=== PATIENT | female | born 1985 | race Caucasian/White ===

== ENCOUNTER 2016-11-01 14:31 | Emergency (ER) | payer SELFPAY ==
[~2016-11-01] VITALS: Ht 167.6 cm; Wt 56.8 kg
[~2016-11-01 14:31] MED LIST: BACTRIM DS 8001 TAB PO; DITROPAN XL 5MG5 M1 PO; FENTANYL 12MCG TD; MACRODANTIN100 PO; MOTRIN 800800 MG/TAB PO; NORCO 325 MG-51 TAB PO; NORCO 325 MG-7.1 TAB PO; OMNICEF 300MG300 MG PO; PERCOCET 325 MG1 TA2 PO; PYRIDIUM 100MG100 MG PO; STOOL SOFTENER100 M2 PO; TYLENOL 500MG500 MG PO; ZOFRAN 4MG T4 MG/TAB PO; ZOFRAN8 MG PO
[2016-11-01 14:32] VITALS: TEMP 98.1
[2016-11-01] MEDS ORDERED: PYRIDIUM200 M1 PO (15:05)
[2016-11-01] MEDS ORDERED: MACROBID 1100 MG/CAP PO (15:05)
[2016-11-01 15:17] VITALS: BP 162/105; PULSE 70
[2016-11-01 15:33] LABS: PH 6 (5-8); SQUAMOUS EPITHELIAL 0-2 /hpf; URINE APPEARANCE Cloudy; URINE BACTERIA Occasional /hpf; URINE BILIRUBIN Negative (NEGATIVE); URINE BLOOD 3+ (NEGATIVE); URINE COLOR Amber; URINE GLUCOSE Negative (NEGATIVE); URINE KETONE Negative (NEGATIVE); URINE RBC >50 /hpf; URINE UROBILINOGEN Negative (NEGATIVE); URINE WBC >50 /hpf
== END 2016-11-01 15:25 | disposition home or self-care (01) ==
LOC: COL.ER 14:31
PROVIDERS: Emergency Medicine
DX: N39.0 Urinary tract infection, site not specified (principal)

== ENCOUNTER 2016-11-07 22:06 | Emergency (ER) | payer SELFPAY ==
[~2016-11-07] VITALS: Ht 167.6 cm; Wt 57.7 kg
[~2016-11-07 22:06] MED LIST changes: +MACROBID 1100 MG/CAP PO; +PYRIDIUM200 M1 PO
[2016-11-07 22:10] VITALS: TEMP 97.9
[2016-11-07 22:59] LABS: BASO # 0.1 (0.0-0.2); BASO % 0.7 % (0.0-2.0); EOS # 0.1 (0.0-0.7); EOS % 1.5 % (0-4.0); GRAN # 5.1 (1.4-6.5); HEMATOCRIT 34.6 % (37.0-47.0); HEMOGLOBIN 11.1 g/dl (12.5-16.0); LYMPH % 15.1 % (20.0-51.0); MEAN CELL VOLUME 85 fl (80.0-100.0); MEAN CORPUSCULAR HEMOGLOBIN 27 pg (27.0-31.0); MEAN CORPUSCULAR HGB CONC 32 g/dl (33.0-37.0); MEAN PLATELET VOLUME 8.7 fl (7.4-10.4); MONO # 0.6 (0.1-0.6); MONO % 8.6 % (1.7-9.3); PLATELET COUNT 449 K/mm3 (130-400); RED BLOOD COUNT 4.06 M/mm3 (4.10-5.30); REDCELL DISTRIBUTION WIDTH-CV 13.2 % (11.5-14.5); WHITE BLOOD COUNT 6.8 K/mm3 (4.8-10.8)
[2016-11-07 22:59] LABS: PH 6 (5-8); SQUAMOUS EPITHELIAL None Seen /hpf; URINE APPEARANCE Hazy; URINE BACTERIA None Seen /hpf; URINE BILIRUBIN Negative (NEGATIVE); URINE BLOOD 3+ (NEGATIVE); URINE COLOR Amber; URINE GLUCOSE Negative (NEGATIVE); URINE KETONE Negative (NEGATIVE); URINE RBC >50 /hpf; URINE UROBILINOGEN >=4.0 mg/dL (NEGATIVE); URINE WBC >50 /hpf
[2016-11-07 23:08] LABS: CREATININE, serum 0.79 mg/dL (0.52-1.25); POTASSIUM 3.7 mmol/L (3.4-5.0)
[2016-11-08] MEDS ORDERED: CEPHALEXIN500 M1 PO (00:45)
[2016-11-08 00:59] VITALS: BP 148/86; PULSE 80
== END 2016-11-08 00:59 | disposition home or self-care (01) ==
LOC: COL.ER 22:06
PROVIDERS: Emergency Medicine
DX: N39.0 Urinary tract infection, site not specified (principal); B95.1 Streptococcus, group B, as the cause of diseases classified elsewhere; R31.9 Hematuria, unspecified
CPT/HCPCS: J0696; Q9967

== ENCOUNTER 2016-12-04 10:40 | Emergency (ER) | payer SELFPAY ==
[~2016-12-04] VITALS: Ht 167.6 cm; Wt 63.6 kg
[~2016-12-04 10:40] MED LIST changes: +CEPHALEXIN500 M1 PO
[2016-12-04 11:41] LABS: BASO # 0.1 (0.0-0.2); BASO % 0.7 % (0.0-2.0); EOS # 0.6 (0.0-0.7); EOS % 8.4 % (0-4.0); GRAN # 5.1 (1.4-6.5); HEMATOCRIT 38.4 % (37.0-47.0); HEMOGLOBIN 12.1 g/dl (12.5-16.0); LYMPH # 0.7 (1.2-3.4); LYMPH % 10.1 % (20.0-51.0); MEAN CELL VOLUME 86 fl (80.0-100.0); MEAN CORPUSCULAR HEMOGLOBIN 27 pg (27.0-31.0); MEAN CORPUSCULAR HGB CONC 32 g/dl (33.0-37.0); MEAN PLATELET VOLUME 9.3 fl (7.4-10.4); MONO # 0.6 (0.1-0.6); MONO % 8.7 % (1.7-9.3); PLATELET COUNT 321 K/mm3 (130-400); RED BLOOD COUNT 4.47 M/mm3 (4.10-5.30); REDCELL DISTRIBUTION WIDTH-CV 14.3 % (11.5-14.5)
[2016-12-04 11:53] LABS: PH 7 (5-8); SQUAMOUS EPITHELIAL 0-2 /hpf; URINE APPEARANCE Turbid; URINE BACTERIA Many /hpf; URINE BILIRUBIN Negative (NEGATIVE); URINE BLOOD 3+ (NEGATIVE); URINE COLOR Amber; URINE GLUCOSE Negative (NEGATIVE); URINE KETONE Trace (NEGATIVE); URINE UROBILINOGEN Negative (NEGATIVE); URINE WBC >50 /hpf
[2016-12-04 12:08] LABS: ADJUSTED CALCIUM 9.4 mg/dL (8.4-10.2); ALBUMIN 4.7 gm/dL (3.5-5.0); BILIRUBIN,TOTAL 0.6 mg/dL (0.0-1.0); CREATININE, serum 0.75 mg/dL (0.52-1.25); TOTAL PROTEIN 9.2 gm/dL (6.4-8.2)
[2016-12-04] MEDS ORDERED: CEPHALEXIN500 M1 PO (13:56)
[2016-12-04] MEDS ORDERED: NORCO 325 MG-51 TAB PO (13:56)
[2016-12-04] MEDS ORDERED: BACTRIM DS 8001 TAB PO (13:56)
[2016-12-04 14:16] VITALS: BP 175/109; PULSE 59; TEMP 97.9
== END 2016-12-04 14:20 | disposition home or self-care (01) ==
LOC: COL.ER 10:40
PROVIDERS: Nurse Practitioner
DX: N12 Tubulo-interstitial nephritis, not specified as acute or chronic (principal)
CPT/HCPCS: J2405; J3010; J7030; Q9967

== ENCOUNTER 2016-12-08 12:07 | Emergency (ER) | payer SELFPAY ==
[~2016-12-08] VITALS: Ht 167.6 cm; Wt 61.4 kg
[2016-12-08 13:20] LABS: PH 6 (5-8); SQUAMOUS EPITHELIAL 0-2 /hpf; URINE APPEARANCE Hazy; URINE BACTERIA None Seen /hpf; URINE BILIRUBIN Negative (NEGATIVE); URINE BLOOD 3+ (NEGATIVE); URINE COLOR Yellow; URINE GLUCOSE Negative (NEGATIVE); URINE KETONE Negative (NEGATIVE); URINE RBC >50 /hpf; URINE UROBILINOGEN Negative (NEGATIVE); URINE WBC >50 /hpf
[2016-12-08] MEDS ORDERED: NORCO 325 MG-51 TAB PO (13:32)
[2016-12-08 13:39] VITALS: BP 144/97; PULSE 64; TEMP 98
== END 2016-12-08 13:40 | disposition home or self-care (01) ==
LOC: COL.ER 12:07
PROVIDERS: Nurse Practitioner
DX: M54.31 Sciatica, right side (principal)

== ENCOUNTER 2016-12-13 11:04 | Day surgery (SDC) | payer SELFPAY ==
[~2016-12-13] VITALS: Ht 167.6 cm; Wt 63.2 kg
[2016-12-13 12:39] VITALS: BP 152/91; PULSE 71; TEMP 98.1
[2016-12-13 14:33] VITALS: BP 143/87; PULSE 84; TEMP 97.7
[2016-12-13 14:45] VITALS: BP 144/88; PULSE 93
[2016-12-13 14:55] VITALS: TEMP 98.9
[2016-12-13 15:00] VITALS: BP 140/81; PULSE 85
[2016-12-13] MEDS ORDERED: SENOKOT S 50 MG1 TAB PO (15:14)
== END 2016-12-13 15:30 | disposition home or self-care (01) ==
LOC: SDCO 11:04
DX: N13.1 Hydronephrosis with ureteral stricture, not elsewhere classified (principal); N21.0 Calculus in bladder; C53.9 Malignant neoplasm of cervix uteri, unspecified; C79.9 Secondary malignant neoplasm of unspecified site
CPT/HCPCS: C1769; C2617; J0360; J0690; J1100; J2270; J2405; J2704; J3010; J7120; Q9967

== ENCOUNTER → 2016-12-26 | Outpatient (CLI) | payer SELFPAY ==
[~2016-12-26] MED LIST changes: +NEULASTA 66 MG/0.6 M SQ; +SENOKOT S 50 MG1 TAB PO
== END ==
LOC: COL.RAD 10:21
DX: N13.39 Other hydronephrosis (principal)

== ENCOUNTER → 2017-01-08 | Outpatient (CLI) | payer SELFPAY ==
[~2017-01-08] VITALS: Ht 167.6 cm; Wt 60.1 kg
[2017-01-08] VITALS (15 sets, daily range): BP systolic 122–142; BP diastolic 76–97; PULSE 56–75
== END ==
LOC: COL.RAD 01-07 10:30 → EDSTATUS 10:30 → COL.RAD 10:30
DX: N13.39 Other hydronephrosis (principal); Z85.41 Personal history of malignant neoplasm of cervix uteri
CPT/HCPCS: J2250; J3010; Q9967

== ENCOUNTER 2017-01-14 11:03 | Day surgery (SDC) | payer SELFPAY ==
[~2017-01-14] VITALS: Ht 167.6 cm; Wt 63.4 kg
[~2017-01-14 11:03] MED LIST changes: -NEULASTA 66 MG/0.6 M SQ
[2017-01-14] MEDS ORDERED: PERCOCET 325 MG1 TA2 PO (11:53)
[2017-01-14 12:12] VITALS: BP 123/75; PULSE 58; TEMP 16
[2017-01-14 12:49] VITALS: BP 108/62; PULSE 53; TEMP 97.5
[2017-01-14 13:00] VITALS: BP 104/63; PULSE 64
[2017-01-14 13:15] VITALS: BP 116/63; PULSE 49
[2017-01-14 13:30] VITALS: BP 147/78; PULSE 16
== END 2017-01-14 14:35 | disposition home or self-care (01) ==
LOC: SDCO 11:03
DX: N13.5 Crossing vessel and stricture of ureter without hydronephrosis (principal); T83.198A Other mechanical complication of other urinary devices and implants, initial encounter; N21.0 Calculus in bladder; C53.9 Malignant neoplasm of cervix uteri, unspecified; D64.9 Anemia, unspecified
CPT/HCPCS: J2250; J2405; J2704; J3010; J7030

== ENCOUNTER 2017-05-02 10:08 | Day surgery (SDC) | payer MEDICAID ==
[~2017-05-02] VITALS: Ht 167.7 cm; Wt 59.0 kg
[2017-05-02] MEDS ORDERED: ZOFRAN 4MG T4 MG/TAB PO (10:55)
[2017-05-02] MEDS ORDERED: NEULASTA 66 MG/0.6 M SQ (10:55)
[2017-05-02 10:56] VITALS: BP 162/83; PULSE 50; TEMP 97.9
[2017-05-02 12:23] VITALS: BP 183/107; PULSE 55
== END 2017-05-02 14:22 | disposition home or self-care (01) ==
LOC: COL.CAR 10:08
DX: C53.9 Malignant neoplasm of cervix uteri, unspecified (principal)
CPT/HCPCS: C1729; C1769; C1894; J2250; J3010; J7030; J7120; Q9967

== ENCOUNTER 2017-07-02 13:00 | Outpatient (RCR) | payer MEDICAID ==
[2017-04-09 15:11] LABS: ADD PATHOLOGY DIFF REVIEW NO
[2017-04-09 15:16] LABS: MEAN CELL VOLUME 86 fl (80.0-100.0); MEAN CORPUSCULAR HGB CONC 32 g/dl (33.0-37.0); MEAN PLATELET VOLUME 9.7 fl (7.4-10.4); PLATELET COUNT 321 K/mm3 (130-400); RED BLOOD COUNT 3.66 M/mm3 (4.10-5.30); REDCELL DISTRIBUTION WIDTH-CV 14.4 % (11.5-14.5); WHITE BLOOD COUNT 4.3 K/mm3 (4.8-10.8)
[2017-04-09 15:27] LABS: HEMATOCRIT 31.5 % (37.0-47.0); HEMOGLOBIN 10.1 g/dl (12.5-16.0); MEAN CORPUSCULAR HEMOGLOBIN 28 pg (27.0-31.0)
[2017-04-09 15:29] LABS: ADJUSTED CALCIUM 9.6 mg/dL (8.4-10.2); ALBUMIN 3.4 gm/dL (3.5-5.0); BILIRUBIN,TOTAL 0.5 mg/dL (0.0-1.0); CALCIUM 9.1 mg/dL (8.4-10.2); CREATININE, serum 0.73 mg/dL (0.52-1.25); MAGNESIUM 1.6 mg/dL (1.6-2.3); TOTAL PROTEIN 6.8 gm/dL (6.4-8.2)
[2017-04-09 15:30] VITALS: BP 125/82; PULSE 57; TEMP 98
[2017-04-09 15:51] LABS: BAND 4 % (0-10); EOSINOPHIL 2 % (0-4); NEUTROPHILS 76 % (42.0-75.2); TOTAL CELLS COUNTED 100
[2017-04-09 15:52] LABS: ANISOCYTOSIS 1+; HYPOCHROMIA 1+; MICROCYTOSIS 1+; POIKILOCYTOSIS 1+; STOMATOCYTE 1+
[2017-04-10 16:58] VITALS: BP 143/72; PULSE 61; TEMP 98.2
[2017-04-12 13:40] VITALS: BP 154/90; PULSE 55; TEMP 98.2
[2017-04-17 13:30] VITALS: BP 101/50; PULSE 62; TEMP 98.6
[2017-04-17 14:15] LABS: MEAN CELL VOLUME 87 fl (80.0-100.0); MEAN CORPUSCULAR HGB CONC 32 g/dl (33.0-37.0); MEAN PLATELET VOLUME 9.5 fl (7.4-10.4); PLATELET COUNT 289 K/mm3 (130-400); RED BLOOD COUNT 3.78 M/mm3 (4.10-5.30); REDCELL DISTRIBUTION WIDTH-CV 14.6 % (11.5-14.5); WHITE BLOOD COUNT 9.6 K/mm3 (4.8-10.8)
[2017-04-17 14:17] LABS: HEMATOCRIT 32.8 % (37.0-47.0); HEMOGLOBIN 10.4 g/dl (12.5-16.0); MEAN CORPUSCULAR HEMOGLOBIN 28 pg (27.0-31.0)
[2017-04-17 14:28] LABS: ADJUSTED CALCIUM 9.5 mg/dL (8.4-10.2); ALBUMIN 3.7 gm/dL (3.5-5.0); BILIRUBIN,TOTAL 0.3 mg/dL (0.0-1.0); CALCIUM 9.3 mg/dL (8.4-10.2); CREATININE, serum 0.73 mg/dL (0.52-1.25); MAGNESIUM 1.8 mg/dL (1.6-2.3); POTASSIUM 4.1 mmol/L (3.4-5.0)
[2017-04-17 15:05] LABS: BAND 51 % (0-10); EOSINOPHIL 1 % (0-4); METAMYELOCYTE 1 % (0-0); MYELOCYTE 1 % (0-0); NEUTROPHILS 17 % (42.0-75.2); TOTAL CELLS COUNTED 100
[2017-04-17 15:06] LABS: STOMATOCYTE 1+
[2017-04-17 15:07] LABS: ADD PATHOLOGY DIFF REVIEW YES
[2017-04-19 08:04] LABS: PATHOLOGY DIFF REVIEW OK
[2017-04-22 13:33] VITALS: BP 139/87; PULSE 84; TEMP 98.3
[2017-04-22 13:34] LABS: ADD PATHOLOGY DIFF REVIEW NO
[2017-04-22 13:39] LABS: MEAN CELL VOLUME 86 fl (80.0-100.0); MEAN CORPUSCULAR HGB CONC 32 g/dl (33.0-37.0); MEAN PLATELET VOLUME 9.4 fl (7.4-10.4); PLATELET COUNT 253 K/mm3 (130-400); RED BLOOD COUNT 4.03 M/mm3 (4.10-5.30); WHITE BLOOD COUNT 9.4 K/mm3 (4.8-10.8)
[2017-04-22 13:44] LABS: HEMATOCRIT 34.7 % (37.0-47.0); HEMOGLOBIN 11.1 g/dl (12.5-16.0); MEAN CORPUSCULAR HEMOGLOBIN 28 pg (27.0-31.0)
[2017-04-22 14:01] LABS: ADJUSTED CALCIUM 9.3 mg/dL (8.4-10.2); ALBUMIN 4.3 gm/dL (3.5-5.0); BILIRUBIN,TOTAL 0.4 mg/dL (0.0-1.0); CALCIUM 9.5 mg/dL (8.4-10.2); CREATININE, serum 0.85 mg/dL (0.52-1.25); MAGNESIUM 1.9 mg/dL (1.6-2.3); POTASSIUM 3.8 mmol/L (3.4-5.0)
[2017-04-22 14:15] LABS: BAND 15 % (0-10); EOSINOPHIL 2 % (0-4); METAMYELOCYTE 1 % (0-0); MYELOCYTE 1 % (0-0); NEUTROPHILS 66 % (42.0-75.2); PLATELET ESTIMATE NORMAL (NORMAL); TOTAL CELLS COUNTED 100
[2017-04-30 12:34] LABS: ADD PATHOLOGY DIFF REVIEW NO
[2017-04-30 12:43] VITALS: BP 119/72; PULSE 62; TEMP 98.2
[2017-04-30 12:49] LABS: MEAN CELL VOLUME 85 fl (80.0-100.0); MEAN CORPUSCULAR HGB CONC 33 g/dl (33.0-37.0); MEAN PLATELET VOLUME 9.8 fl (7.4-10.4); PLATELET COUNT 527 K/mm3 (130-400); RED BLOOD COUNT 3.95 M/mm3 (4.10-5.30); REDCELL DISTRIBUTION WIDTH-CV 15.1 % (11.5-14.5)
[2017-04-30 12:50] LABS: HEMATOCRIT 33.4 % (37.0-47.0); MEAN CORPUSCULAR HEMOGLOBIN 28 pg (27.0-31.0)
[2017-04-30 12:57] LABS: ADJUSTED CALCIUM 9.4 mg/dL (8.4-10.2); ALBUMIN 3.8 gm/dL (3.5-5.0); BILIRUBIN,TOTAL 0.3 mg/dL (0.0-1.0); CALCIUM 9.2 mg/dL (8.4-10.2); CREATININE, serum 0.66 mg/dL (0.52-1.25); MAGNESIUM 1.7 mg/dL (1.6-2.3); POTASSIUM 3.8 mmol/L (3.4-5.0); TOTAL PROTEIN 7.4 gm/dL (6.4-8.2)
[2017-04-30 13:47] LABS: BAND 4 % (0-10); EOSINOPHIL 1 % (0-4); METAMYELOCYTE 2 % (0-0); NEUTROPHILS 75 % (42.0-75.2); TOTAL CELLS COUNTED 100
[2017-04-30 13:48] LABS: ANISOCYTOSIS 1+; HYPOCHROMIA 2+; PLATELET ESTIMATE INCREASED (NORMAL)
[2017-05-07 13:24] LABS: ADD PATHOLOGY DIFF REVIEW NO
[2017-05-07 13:35] LABS: MEAN CELL VOLUME 87 fl (80.0-100.0); MEAN CORPUSCULAR HGB CONC 31 g/dl (33.0-37.0); MEAN PLATELET VOLUME 9.8 fl (7.4-10.4); PLATELET COUNT 332 K/mm3 (130-400); RED BLOOD COUNT 3.55 M/mm3 (4.10-5.30); REDCELL DISTRIBUTION WIDTH-CV 15.3 % (11.5-14.5); WHITE BLOOD COUNT 9.1 K/mm3 (4.8-10.8)
[2017-05-07 13:38] LABS: HEMATOCRIT 30.9 % (37.0-47.0); HEMOGLOBIN 9.7 g/dl (12.5-16.0); MEAN CORPUSCULAR HEMOGLOBIN 27 pg (27.0-31.0)
[2017-05-07 13:45] LABS: ADJUSTED CALCIUM 9.7 mg/dL (8.4-10.2); ALBUMIN 3.7 gm/dL (3.5-5.0); BILIRUBIN,TOTAL 0.4 mg/dL (0.0-1.0); CALCIUM 9.5 mg/dL (8.4-10.2); CREATININE, serum 0.7 mg/dL (0.52-1.25); MAGNESIUM 1.7 mg/dL (1.6-2.3); POTASSIUM 4.1 mmol/L (3.4-5.0); TOTAL PROTEIN 7.1 gm/dL (6.4-8.2)
[2017-05-07 13:58] VITALS: BP 105/61; PULSE 71; TEMP 98.3
[2017-05-07 14:05] LABS: BAND 9 % (0-10); EOSINOPHIL 1 % (0-4); NEUTROPHILS 65 % (42.0-75.2); TOTAL CELLS COUNTED 100
[2017-05-07 14:08] LABS: POLYCHROMASIA 1+
[2017-05-07 14:09] LABS: PLATELET ESTIMATE NORMAL (NORMAL); POIKILOCYTOSIS 1+
[2017-05-14 13:54] VITALS: BP 130/72; PULSE 68; TEMP 98
[2017-05-14 13:57] LABS: ADD PATHOLOGY DIFF REVIEW NO
[2017-05-14 14:11] LABS: ALBUMIN 4.2 gm/dL (3.5-5.0); BILIRUBIN,TOTAL 0.4 mg/dL (0.0-1.0); CALCIUM 9.2 mg/dL (8.4-10.2); CREATININE, serum 0.78 mg/dL (0.52-1.25); MAGNESIUM 1.8 mg/dL (1.6-2.3); TOTAL PROTEIN 7.6 gm/dL (6.4-8.2)
[2017-05-14 14:21] LABS: MEAN CELL VOLUME 87 fl (80.0-100.0); MEAN CORPUSCULAR HGB CONC 32 g/dl (33.0-37.0); MEAN PLATELET VOLUME 9.8 fl (7.4-10.4); PLATELET COUNT 222 K/mm3 (130-400); RED BLOOD COUNT 3.77 M/mm3 (4.10-5.30); REDCELL DISTRIBUTION WIDTH-CV 16.4 % (11.5-14.5); WHITE BLOOD COUNT 9.9 K/mm3 (4.8-10.8)
[2017-05-14 14:22] LABS: HEMATOCRIT 32.9 % (37.0-47.0); HEMOGLOBIN 10.6 g/dl (12.5-16.0); MEAN CORPUSCULAR HEMOGLOBIN 28 pg (27.0-31.0)
[2017-05-14 14:47] LABS: BAND 48 % (0-10); BASOPHIL 1 % (0-2); EOSINOPHIL 1 % (0-4); NEUTROPHILS 38 % (42.0-75.2); PLATELET ESTIMATE NORMAL (NORMAL); TOTAL CELLS COUNTED 100
[2017-05-14 14:48] LABS: ANISOCYTOSIS 2+
[2017-05-21 15:16] LABS: MEAN CELL VOLUME 88 fl (80.0-100.0); MEAN CORPUSCULAR HGB CONC 32 g/dl (33.0-37.0); PLATELET COUNT 340 K/mm3 (130-400); RED BLOOD COUNT 3.55 M/mm3 (4.10-5.30); REDCELL DISTRIBUTION WIDTH-CV 17.1 % (11.5-14.5); WHITE BLOOD COUNT 9.3 K/mm3 (4.8-10.8)
[2017-05-21 15:17] LABS: HEMATOCRIT 31.1 % (37.0-47.0); MEAN CORPUSCULAR HEMOGLOBIN 28 pg (27.0-31.0)
[2017-05-21 15:31] LABS: ADJUSTED CALCIUM 9.1 mg/dL (8.4-10.2); BILIRUBIN,TOTAL 0.4 mg/dL (0.0-1.0); CALCIUM 9.1 mg/dL (8.4-10.2); CREATININE, serum 0.93 mg/dL (0.52-1.25); MAGNESIUM 1.7 mg/dL (1.6-2.3); POTASSIUM 4.3 mmol/L (3.4-5.0); TOTAL PROTEIN 6.9 gm/dL (6.4-8.2)
[2017-05-21 16:13] VITALS: BP 99/45; PULSE 64; TEMP 98
[2017-05-21 16:35] LABS: BAND 2 % (0-10); EOSINOPHIL 1 % (0-4); NEUTROPHILS 84 % (42.0-75.2); TOTAL CELLS COUNTED 100
[2017-05-21 16:37] LABS: HYPOCHROMIA 1+; MICROCYTOSIS 2+; PLATELET ESTIMATE INCREASED (NORMAL); POIKILOCYTOSIS 1+
[2017-05-21 16:38] LABS: TOXIC GRANULATION PRESENT
[2017-05-23 08:41] LABS: ADD PATHOLOGY DIFF REVIEW YES
[2017-05-23 08:44] LABS: PATHOLOGY DIFF REVIEW OK
[2017-05-29 14:04] VITALS: BP 120/71; PULSE 65; TEMP 98.5
[2017-05-29 14:09] LABS: ADD PATHOLOGY DIFF REVIEW NO
[2017-05-29 14:18] LABS: MEAN CELL VOLUME 90 fl (80.0-100.0); MEAN CORPUSCULAR HGB CONC 32 g/dl (33.0-37.0); MEAN PLATELET VOLUME 9.8 fl (7.4-10.4); PLATELET COUNT 290 K/mm3 (130-400); RED BLOOD COUNT 3.45 M/mm3 (4.10-5.30); REDCELL DISTRIBUTION WIDTH-CV 16.6 % (11.5-14.5); WHITE BLOOD COUNT 10.2 K/mm3 (4.8-10.8)
[2017-05-29 14:22] LABS: HEMOGLOBIN 9.9 g/dl (12.5-16.0); MEAN CORPUSCULAR HEMOGLOBIN 29 pg (27.0-31.0)
[2017-05-29 14:49] LABS: ANISOCYTOSIS 1+; BAND 12 % (0-10); EOSINOPHIL 1 % (0-4); NEUTROPHILS 69 % (42.0-75.2); PLATELET ESTIMATE NORMAL (NORMAL); POLYCHROMASIA 1+; TOTAL CELLS COUNTED 100
[2017-06-03 11:50] LABS: ADD PATHOLOGY DIFF REVIEW NO
[2017-06-03 12:04] LABS: ADJUSTED CALCIUM 9.5 mg/dL (8.4-10.2); ALBUMIN 4.1 gm/dL (3.5-5.0); BILIRUBIN,TOTAL 0.4 mg/dL (0.0-1.0); CALCIUM 9.6 mg/dL (8.4-10.2); CREATININE, serum 0.73 mg/dL (0.52-1.25); POTASSIUM 4.5 mmol/L (3.4-5.0); TOTAL PROTEIN 7.4 gm/dL (6.4-8.2)
[2017-06-03 12:09] LABS: MEAN CELL VOLUME 89 fl (80.0-100.0); MEAN CORPUSCULAR HGB CONC 32 g/dl (33.0-37.0); MEAN PLATELET VOLUME 9.8 fl (7.4-10.4); PLATELET COUNT 247 K/mm3 (130-400); RED BLOOD COUNT 3.75 M/mm3 (4.10-5.30); REDCELL DISTRIBUTION WIDTH-CV 16.8 % (11.5-14.5)
[2017-06-03 12:17] LABS: HEMATOCRIT 33.5 % (37.0-47.0); HEMOGLOBIN 10.8 g/dl (12.5-16.0); MEAN CORPUSCULAR HEMOGLOBIN 29 pg (27.0-31.0)
[2017-06-03 12:21] LABS: BAND 7 % (0-10); EOSINOPHIL 2 % (0-4); NEUTROPHILS 75 % (42.0-75.2); TOTAL CELLS COUNTED 100
[2017-06-03 12:22] LABS: ANISOCYTOSIS 1+; PLATELET ESTIMATE NORMAL (NORMAL)
[2017-06-11 15:38] VITALS: BP 117/65; PULSE 63; TEMP 98.1
[2017-06-11 15:57] LABS: ADD PATHOLOGY DIFF REVIEW NO
[2017-06-11 16:01] LABS: MEAN CELL VOLUME 90 fl (80.0-100.0); MEAN CORPUSCULAR HGB CONC 33 g/dl (33.0-37.0); MEAN PLATELET VOLUME 9.8 fl (7.4-10.4); PLATELET COUNT 397 K/mm3 (130-400); REDCELL DISTRIBUTION WIDTH-CV 15.9 % (11.5-14.5); WHITE BLOOD COUNT 6.7 K/mm3 (4.8-10.8)
[2017-06-11 16:04] LABS: HEMATOCRIT 30.5 % (37.0-47.0); HEMOGLOBIN 9.9 g/dl (12.5-16.0); MEAN CORPUSCULAR HEMOGLOBIN 29 pg (27.0-31.0)
[2017-06-11 16:25] LABS: ADJUSTED CALCIUM 9.7 mg/dL (8.4-10.2); ALBUMIN 3.9 gm/dL (3.5-5.0); BILIRUBIN,TOTAL 0.3 mg/dL (0.0-1.0); CALCIUM 9.6 mg/dL (8.4-10.2); CREATININE, serum 0.78 mg/dL (0.52-1.25); MAGNESIUM 1.7 mg/dL (1.6-2.3); POTASSIUM 4.2 mmol/L (3.4-5.0); TOTAL PROTEIN 6.9 gm/dL (6.4-8.2)
[2017-06-11 16:36] LABS: BAND 21 % (0-10); EOSINOPHIL 1 % (0-4); NEUTROPHILS 65 % (42.0-75.2); TOTAL CELLS COUNTED 100
[2017-06-18 09:54] VITALS: BP 106/60; PULSE 63; TEMP 98.4
[2017-06-18 10:08] LABS: ADD PATHOLOGY DIFF REVIEW NO
[2017-06-18 10:15] LABS: RED BLOOD COUNT 3.53 M/mm3 (4.10-5.30); WHITE BLOOD COUNT 12.7 K/mm3 (4.8-10.8)
[2017-06-18 10:16] LABS: MEAN CELL VOLUME 92 fl (80.0-100.0); MEAN CORPUSCULAR HGB CONC 32 g/dl (33.0-37.0); MEAN PLATELET VOLUME 9.5 fl (7.4-10.4); PLATELET COUNT 302 K/mm3 (130-400)
[2017-06-18 10:19] LABS: HEMATOCRIT 32.5 % (37.0-47.0); HEMOGLOBIN 10.3 g/dl (12.5-16.0); MEAN CORPUSCULAR HEMOGLOBIN 29 pg (27.0-31.0)
[2017-06-18 10:47] LABS: BAND 36 % (0-10); EOSINOPHIL 1 % (0-4); METAMYELOCYTE 1 % (0-0); MYELOCYTE 1 % (0-0); NEUTROPHILS 46 % (42.0-75.2); PLATELET ESTIMATE NORMAL (NORMAL); TOTAL CELLS COUNTED 100
[2017-06-28 13:55] LABS: ADD PATHOLOGY DIFF REVIEW NO
[2017-06-28 14:02] LABS: MEAN CELL VOLUME 88 fl (80.0-100.0); MEAN CORPUSCULAR HGB CONC 33 g/dl (33.0-37.0); MEAN PLATELET VOLUME 9.5 fl (7.4-10.4); PLATELET COUNT 281 K/mm3 (130-400); RED BLOOD COUNT 3.77 M/mm3 (4.10-5.30); REDCELL DISTRIBUTION WIDTH-CV 15.8 % (11.5-14.5); WHITE BLOOD COUNT 8.2 K/mm3 (4.8-10.8)
[2017-06-28 14:03] LABS: HEMATOCRIT 33.2 % (37.0-47.0); MEAN CORPUSCULAR HEMOGLOBIN 29 pg (27.0-31.0)
[2017-06-28 14:18] VITALS: BP 140/82; PULSE 83; TEMP 98
[2017-06-28 14:21] LABS: BAND 19 % (0-10); BASOPHIL 2 % (0-2); METAMYELOCYTE 1 % (0-0); NEUTROPHILS 61 % (42.0-75.2); PLATELET ESTIMATE NORMAL (NORMAL); TOTAL CELLS COUNTED 100; TOXIC GRANULATION PRESENT
[~2017-07-02] VITALS: Ht 167.6 cm; Wt 63.0 kg
[~2017-07-02 13:00] MED LIST changes: +NEULASTA 66 MG/0.6 M SQ
[2017-07-02 13:40] VITALS: BP 124/74; PULSE 60; TEMP 97.6
[2017-07-02 13:40] LABS: ADD PATHOLOGY DIFF REVIEW NO
[2017-07-02 13:55] LABS: MEAN CELL VOLUME 88 fl (80.0-100.0); MEAN CORPUSCULAR HGB CONC 33 g/dl (33.0-37.0); MEAN PLATELET VOLUME 9.7 fl (7.4-10.4); PLATELET COUNT 396 K/mm3 (130-400); RED BLOOD COUNT 3.83 M/mm3 (4.10-5.30); REDCELL DISTRIBUTION WIDTH-CV 15.5 % (11.5-14.5); WHITE BLOOD COUNT 7.4 K/mm3 (4.8-10.8)
[2017-07-02 13:56] LABS: ADJUSTED CALCIUM 8.9 mg/dL (8.4-10.2); ALBUMIN 4.2 gm/dL (3.5-5.0); BILIRUBIN,TOTAL 0.3 mg/dL (0.0-1.0); CALCIUM 9.1 mg/dL (8.4-10.2); CREATININE, serum 0.85 mg/dL (0.52-1.25); MAGNESIUM 1.4 mg/dL (1.6-2.3); POTASSIUM 4.2 mmol/L (3.4-5.0); TOTAL PROTEIN 7.3 gm/dL (6.4-8.2)
[2017-07-02 14:22] LABS: BAND 4 % (0-10); BASOPHIL 1 % (0-2); EOSINOPHIL 1 % (0-4); MYELOCYTE 2 % (0-0); NEUTROPHILS 73 % (42.0-75.2); PLATELET ESTIMATE NORMAL (NORMAL); TOTAL CELLS COUNTED 100
[2017-07-02 14:25] LABS: ANISOCYTOSIS 1+; HEMATOCRIT 33.6 % (37.0-47.0); HEMOGLOBIN 11.1 g/dl (12.5-16.0); MEAN CORPUSCULAR HEMOGLOBIN 29 pg (27.0-31.0)
[2017-07-02 14:26] LABS: TEAR DROP CELLS 1+
== END 2017-07-08 ==
LOC: EUO
PROVIDERS: Internal Medicine; Internal Medicine Medical Oncology
DX: C53.9 Malignant neoplasm of cervix uteri, unspecified (principal)
CPT/HCPCS: C1751; J1644

== ENCOUNTER → 2017-07-25 | Outpatient (CLI) | payer MEDICAID ==
[~2017-07-25] VITALS: Ht 167.6 cm; Wt 66.1 kg
[~2017-07-25] MED LIST changes: +NEURONTIN100 MG/CAP PO; +NEURONTIN300 MG/CAP; +ROXICODONE 55 MG/TAB PO; +ZOVIRAX 200MG200 MG PO
[2017-07-25 15:29] VITALS: BP 178/96; PULSE 54
== END ==
LOC: COL.RAD 14:56
DX: Z01.89 Encounter for other specified special examinations (principal)

== ENCOUNTER 2017-08-02 09:09 | Inpatient (IN) | payer MEDICAID ==
[~2017-08-02] VITALS: Ht 167.6 cm; Wt 66.0 kg
[2017-08-02] MEDS ORDERED: LEVAQUIN 5500 MG/TA1 PO (09:25)
[2017-08-02 10:05] LABS: MEAN CELL VOLUME 95 fl (80.0-100.0); MEAN CORPUSCULAR HGB CONC 32 g/dl (33.0-37.0); MEAN PLATELET VOLUME 9.6 fl (7.4-10.4); PLATELET COUNT 336 K/mm3 (130-400); RED BLOOD COUNT 3.67 M/mm3 (4.10-5.30); WHITE BLOOD COUNT 13.2 K/mm3 (4.8-10.8)
[2017-08-02 10:11] LABS: HEMOGLOBIN 11.1 g/dl (12.5-16.0); MEAN CORPUSCULAR HEMOGLOBIN 30 pg (27.0-31.0)
[2017-08-02 10:12] LABS: ADD PATHOLOGY DIFF REVIEW NO
[2017-08-02] MEDS ORDERED: DECADRON 4MG TAB4 MG PO (10:15)
[2017-08-02 10:17] LABS: BUDDING YEAST Present /hpf; MUCOUS Present /lpf; PH 8 (5-8); URINE APPEARANCE Cloudy; URINE BACTERIA Rare /hpf; URINE BILIRUBIN Negative (NEGATIVE); URINE BLOOD 1+ (NEGATIVE); URINE GLUCOSE Negative (NEGATIVE); URINE KETONE Negative (NEGATIVE); URINE LEUKOCYTE ESTERASE 3+ (NEGATIVE); URINE PROTEIN(semi-quant) 1+ (NEGATIVE); URINE UROBILINOGEN Negative (NEGATIVE); URINE WBC >50 /hpf
[2017-08-02 10:34] LABS: ADJUSTED CALCIUM 9.1 mg/dL (8.4-10.2); ALBUMIN 4.2 gm/dL (3.5-5.0); BILIRUBIN,TOTAL 0.3 mg/dL (0.0-1.0); C-REACTIVE PROTEIN 3.3 mg/dL (0.0-0.9); CALCIUM 9.3 mg/dL (8.4-10.2); CREATININE, serum 0.77 mg/dL (0.52-1.25); POTASSIUM 4.4 mmol/L (3.4-5.0); TOTAL PROTEIN 7.6 gm/dL (6.4-8.2)
[2017-08-02 10:38] LABS: BAND 45 % (0-10); BASOPHIL 1 % (0-2); LYMPHOCYTE 9 % (20.0-51.0); NEUTROPHILS 43 % (42.0-75.2); PLATELET ESTIMATE NORMAL (NORMAL); TOTAL CELLS COUNTED 100
[2017-08-02 10:40] LABS: STOMATOCYTE 1+
[2017-08-02 10:55] LABS: URINE COLOR Colorless
[2017-08-02 10:57] LABS: COLLECTION METHOD CATHETER
[2017-08-02 13:18] VITALS: BP 111/66; PULSE 63; TEMP 97.7
[2017-08-02 16:22] VITALS: BP 116/64; PULSE 60; TEMP 98
[2017-08-02 20:22] VITALS: BP 123/70; PULSE 65; TEMP 98.2
[2017-08-03 04:05] VITALS: BP 121/66; PULSE 61; TEMP 98.3
[2017-08-03 07:45] VITALS: BP 127/75; PULSE 67; TEMP 98.5
[2017-08-03 09:43] LABS: MEAN CELL VOLUME 98 fl (80.0-100.0); MEAN CORPUSCULAR HGB CONC 31 g/dl (33.0-37.0); MEAN PLATELET VOLUME 9.4 fl (7.4-10.4); PLATELET COUNT 257 K/mm3 (130-400); RED BLOOD COUNT 3.51 M/mm3 (4.10-5.30); WHITE BLOOD COUNT 11.2 K/mm3 (4.8-10.8)
[2017-08-03 09:49] LABS: ADD PATHOLOGY DIFF REVIEW NO; HEMATOCRIT 34.4 % (37.0-47.0); HEMOGLOBIN 10.6 g/dl (12.5-16.0); MEAN CORPUSCULAR HEMOGLOBIN 30 pg (27.0-31.0)
[2017-08-03 09:52] LABS: CALCIUM 9.1 mg/dL (8.4-10.2); CREATININE, serum 0.75 mg/dL (0.52-1.25)
[2017-08-03 12:22] VITALS: BP 109/57; PULSE 79; TEMP 98
[2017-08-03 13:17] LABS: BAND 26 % (0-10); LYMPHOCYTE 7 % (20.0-51.0); NEUTROPHILS 65 % (42.0-75.2); PLATELET ESTIMATE NORMAL (NORMAL); TOTAL CELLS COUNTED 100; TOXIC GRANULATION PRESENT
[2017-08-03 13:22] LABS: ANISOCYTOSIS 1+; DOHLE BODIES PRESENT; POLYCHROMASIA 1+; TEAR DROP CELLS 1+
[2017-08-03 16:03] VITALS: BP 137/77; PULSE 78; TEMP 98.8
[2017-08-03 20:22] VITALS: BP 115/64; PULSE 61; TEMP 98.8
[2017-08-04] VITALS (7 sets, daily range): BP systolic 103–152; BP diastolic 62–82; PULSE 57–84; TEMP 97.6–98.6
[2017-08-04 09:45] LABS: MEAN CELL VOLUME 95 fl (80.0-100.0); MEAN CORPUSCULAR HGB CONC 32 g/dl (33.0-37.0); MEAN PLATELET VOLUME 9.8 fl (7.4-10.4); PLATELET COUNT 184 K/mm3 (130-400); RED BLOOD COUNT 3.03 M/mm3 (4.10-5.30)
[2017-08-04 09:54] LABS: ADD PATHOLOGY DIFF REVIEW NO; HEMATOCRIT 28.9 % (37.0-47.0); HEMOGLOBIN 9.1 g/dl (12.5-16.0); MEAN CORPUSCULAR HEMOGLOBIN 30 pg (27.0-31.0)
[2017-08-04 09:55] LABS: CALCIUM 8.8 mg/dL (8.4-10.2); CREATININE, serum 0.72 mg/dL (0.52-1.25); POTASSIUM 4.2 mmol/L (3.4-5.0)
[2017-08-04 12:27] LABS: BAND 36 % (0-10); LYMPHOCYTE 4 % (20.0-51.0); MYELOCYTE 1 % (0-0); NEUTROPHILS 59 % (42.0-75.2); PLATELET ESTIMATE NORMAL (NORMAL); TOTAL CELLS COUNTED 100
[2017-08-05 08:47] VITALS: BP 154/85; PULSE 61; TEMP 98
[2017-08-05 09:08] LABS: MEAN CELL VOLUME 95 fl (80.0-100.0); MEAN CORPUSCULAR HGB CONC 31 g/dl (33.0-37.0); MEAN PLATELET VOLUME 9.3 fl (7.4-10.4); PLATELET COUNT 198 K/mm3 (130-400); RED BLOOD COUNT 2.93 M/mm3 (4.10-5.30); WHITE BLOOD COUNT 9.1 K/mm3 (4.8-10.8)
[2017-08-05 09:10] LABS: ADD PATHOLOGY DIFF REVIEW NO; HEMATOCRIT 27.8 % (37.0-47.0); HEMOGLOBIN 8.7 g/dl (12.5-16.0); MEAN CORPUSCULAR HEMOGLOBIN 30 pg (27.0-31.0)
[2017-08-05 10:26] LABS: BAND 55 % (0-10); BASOPHIL 1 % (0-2); EOSINOPHIL 1 % (0-4); LYMPHOCYTE 11 % (20.0-51.0); METAMYELOCYTE 1 % (0-0); NEUTROPHILS 28 % (42.0-75.2); PLATELET ESTIMATE NORMAL (NORMAL); TOTAL CELLS COUNTED 100
[2017-08-05 10:28] LABS: TOXIC GRANULATION PRESENT
[2017-08-05 10:29] LABS: POLYCHROMASIA 1+
[2017-08-05 12:44] VITALS: BP 160/86; PULSE 58; TEMP 98
[2017-08-05 16:36] VITALS: BP 152/92; PULSE 65; TEMP 98.7
[2017-08-05 19:45] VITALS: BP 134/82; PULSE 67; TEMP 98.2
[2017-08-06 02:03] VITALS: BP 177/95; PULSE 65; TEMP 98.1
[2017-08-06 03:04] VITALS: BP 133/80; PULSE 59; TEMP 98.2
[2017-08-06 06:59] LABS: MEAN CELL VOLUME 94 fl (80.0-100.0); MEAN CORPUSCULAR HGB CONC 32 g/dl (33.0-37.0); MEAN PLATELET VOLUME 9.5 fl (7.4-10.4); PLATELET COUNT 210 K/mm3 (130-400); RED BLOOD COUNT 3.13 M/mm3 (4.10-5.30); WHITE BLOOD COUNT 7.8 K/mm3 (4.8-10.8)
[2017-08-06 07:00] LABS: ADD PATHOLOGY DIFF REVIEW NO; HEMATOCRIT 29.5 % (37.0-47.0); HEMOGLOBIN 9.4 g/dl (12.5-16.0); MEAN CORPUSCULAR HEMOGLOBIN 30 pg (27.0-31.0)
[2017-08-06 07:19] LABS: CALCIUM 8.7 mg/dL (8.4-10.2); CREATININE, serum 0.69 mg/dL (0.52-1.25); POTASSIUM 3.6 mmol/L (3.4-5.0)
[2017-08-06 07:33] VITALS: BP 149/88; PULSE 63; TEMP 98.1
[2017-08-06 07:39] LABS: BAND 35 % (0-10); EOSINOPHIL 2 % (0-4); HYPOCHROMIA 2+; LYMPHOCYTE 10 % (20.0-51.0); NEUTROPHILS 46 % (42.0-75.2); NUCLEATED RED BLOOD CELL 2 (0-6); PLATELET ESTIMATE NORMAL (NORMAL); TOTAL CELLS COUNTED 100; TOXIC GRANULATION PRESENT
[2017-08-06 07:40] LABS: POLYCHROMASIA 1+
[2017-08-06 10:56] VITALS: BP 142/75; PULSE 61; TEMP 98.1
[2017-08-06 15:31] VITALS: BP 121/65; PULSE 59; TEMP 97.6
[2017-08-06 19:40] VITALS: BP 156/85; PULSE 51; TEMP 97.1
[2017-08-07 00:10] VITALS: BP 146/77; PULSE 53; TEMP 97.7
[2017-08-07 03:59] VITALS: BP 149/77; PULSE 57; TEMP 98.6
[2017-08-07 06:35] LABS: BASO # 0.1 (0.0-0.2); BASO % 0.6 % (0.0-2.0); EOS # 0.1 (0.0-0.7); EOS % 1.3 % (0-4.0); GRAN # 6.7 (1.4-6.5); LYMPH # 0.9 (1.2-3.4); LYMPH % 10.7 % (20.0-51.0); MEAN CELL VOLUME 93 fl (80.0-100.0); MEAN CORPUSCULAR HGB CONC 32 g/dl (33.0-37.0); MEAN PLATELET VOLUME 9.5 fl (7.4-10.4); MONO # 0.4 (0.1-0.6); PLATELET COUNT 201 K/mm3 (130-400); RED BLOOD COUNT 3.23 M/mm3 (4.10-5.30); WHITE BLOOD COUNT 8.3 K/mm3 (4.8-10.8)
[2017-08-07 06:46] LABS: HEMOGLOBIN 9.6 g/dl (12.5-16.0); MEAN CORPUSCULAR HEMOGLOBIN 30 pg (27.0-31.0)
[2017-08-07 06:51] LABS: CALCIUM 8.8 mg/dL (8.4-10.2); CREATININE, serum 0.73 mg/dL (0.52-1.25); POTASSIUM 3.7 mmol/L (3.4-5.0)
[2017-08-07 07:37] VITALS: BP 137/67; PULSE 60; TEMP 98.3
[2017-08-07 12:16] VITALS: BP 154/78; PULSE 55; TEMP 98
[2017-08-07 12:43] VITALS: PULSE 54
[2017-08-07] MEDS ORDERED: BACTRIM DS 8001 TAB PO (14:46)
[2017-08-07] MEDS ORDERED: PERCOCET 325 MG1 TA2 PO (14:47)
== END 2017-08-07 16:00 | disposition home or self-care (01) | DRG 699 ==
LOC: COL.ER 09:09 → MEDICAL 12:15 → COL.ER 12:15 → MEDICAL 08-04 16:10
PROVIDERS: Family Medicine; Nurse Practitioner; Physician Assistant
PROC: 0T25X0Z Change Drainage Device in Kidney, External Approach (ICD-10-PCS; principal; 2017-08-07)
DX: N99.521 Infection of incontinent external stoma of urinary tract (principal); N10 Acute pyelonephritis; C77.2 Secondary and unspecified malignant neoplasm of intra-abdominal lymph nodes; B95.62 Methicillin resistant Staphylococcus aureus infection as the cause of diseases classified elsewhere; C53.9 Malignant neoplasm of cervix uteri, unspecified
CPT/HCPCS: 99222-AI; 99231-AI; 99232-AI; 99239; J1170; J1644; J1650; J1956; J2405; J3370; J7030; J7050; Q9967

== ENCOUNTER 2017-08-27 14:00 | Outpatient (RCR) | payer MEDICAID ==
[2017-07-09 13:51] VITALS: BP 128/80; PULSE 69; TEMP 98
[2017-07-09 14:17] LABS: ADD PATHOLOGY DIFF REVIEW NO
[2017-07-09 14:28] LABS: MEAN CELL VOLUME 91 fl (80.0-100.0); MEAN CORPUSCULAR HGB CONC 33 g/dl (33.0-37.0); MEAN PLATELET VOLUME 9.9 fl (7.4-10.4); PLATELET COUNT 287 K/mm3 (130-400); RED BLOOD COUNT 3.67 M/mm3 (4.10-5.30); WHITE BLOOD COUNT 13.4 K/mm3 (4.8-10.8)
[2017-07-09 14:38] LABS: HEMATOCRIT 33.4 % (37.0-47.0); HEMOGLOBIN 10.9 g/dl (12.5-16.0); MEAN CORPUSCULAR HEMOGLOBIN 30 pg (27.0-31.0)
[2017-07-09 15:12] LABS: BAND 34 % (0-10); BASOPHIL 1 % (0-2); LYMPHOCYTE 11 % (20.0-51.0); NEUTROPHILS 52 % (42.0-75.2); PLATELET ESTIMATE NORMAL (NORMAL); TOTAL CELLS COUNTED 100
[2017-07-16 11:24] VITALS: BP 128/73; PULSE 64; TEMP 97.8
[2017-07-16 11:26] LABS: ADD PATHOLOGY DIFF REVIEW NO
[2017-07-16 11:38] LABS: HEMATOCRIT 32.9 % (37.0-47.0); HEMOGLOBIN 10.5 g/dl (12.5-16.0); MEAN CELL VOLUME 93 fl (80.0-100.0); MEAN CORPUSCULAR HEMOGLOBIN 30 pg (27.0-31.0); MEAN CORPUSCULAR HGB CONC 32 g/dl (33.0-37.0); MEAN PLATELET VOLUME 9.8 fl (7.4-10.4); PLATELET COUNT 212 K/mm3 (130-400); RED BLOOD COUNT 3.53 M/mm3 (4.10-5.30); WHITE BLOOD COUNT 6.7 K/mm3 (4.8-10.8)
[2017-07-16 12:12] LABS: BAND 31 % (0-10); EOSINOPHIL 1 % (0-4); LYMPHOCYTE 23 % (20.0-51.0); METAMYELOCYTE 2 % (0-0); NEUTROPHILS 37 % (42.0-75.2); PLATELET ESTIMATE NORMAL (NORMAL); TOTAL CELLS COUNTED 100
[2017-07-16 12:16] LABS: ANISOCYTOSIS 1+
[2017-07-22 13:04] VITALS: BP 112/79; PULSE 84; TEMP 97.4
[2017-07-22 13:29] LABS: ADD PATHOLOGY DIFF REVIEW NO
[2017-07-22 13:36] VITALS: BP 107/70; PULSE 95; TEMP 97.5
[2017-07-22 13:45] LABS: ADJUSTED CALCIUM 9.3 mg/dL (8.4-10.2); ALBUMIN 4.4 gm/dL (3.5-5.0); BILIRUBIN,TOTAL 0.6 mg/dL (0.0-1.0); CALCIUM 9.6 mg/dL (8.4-10.2); CREATININE, serum 0.86 mg/dL (0.52-1.25); MAGNESIUM 1.7 mg/dL (1.6-2.3); POTASSIUM 4.6 mmol/L (3.4-5.0); TOTAL PROTEIN 7.8 gm/dL (6.4-8.2)
[2017-07-22 13:51] LABS: MEAN CELL VOLUME 93 fl (80.0-100.0); MEAN CORPUSCULAR HGB CONC 33 g/dl (33.0-37.0); MEAN PLATELET VOLUME 9.8 fl (7.4-10.4); PLATELET COUNT 365 K/mm3 (130-400); RED BLOOD COUNT 3.71 M/mm3 (4.10-5.30); WHITE BLOOD COUNT 4.8 K/mm3 (4.8-10.8)
[2017-07-22 14:03] LABS: HEMATOCRIT 34.5 % (37.0-47.0); HEMOGLOBIN 11.2 g/dl (12.5-16.0); MEAN CORPUSCULAR HEMOGLOBIN 30 pg (27.0-31.0)
[2017-07-22 14:16] LABS: BAND 24 % (0-10); BASOPHIL 2 % (0-2); EOSINOPHIL 3 % (0-4); LYMPHOCYTE 20 % (20.0-51.0); METAMYELOCYTE 2 % (0-0); NEUTROPHILS 45 % (42.0-75.2); TOTAL CELLS COUNTED 100
[2017-07-22 14:17] LABS: PLATELET ESTIMATE NORMAL (NORMAL)
[2017-07-30 15:39] LABS: ADD PATHOLOGY DIFF REVIEW NO
[2017-07-30 15:41] LABS: MEAN CELL VOLUME 91 fl (80.0-100.0); MEAN CORPUSCULAR HGB CONC 33 g/dl (33.0-37.0); MEAN PLATELET VOLUME 9.3 fl (7.4-10.4); PLATELET COUNT 363 K/mm3 (130-400); RED BLOOD COUNT 3.84 M/mm3 (4.10-5.30); WHITE BLOOD COUNT 14.9 K/mm3 (4.8-10.8)
[2017-07-30 15:46] VITALS: BP 140/105; PULSE 77; TEMP 98.5
[2017-07-30 15:47] LABS: HEMATOCRIT 34.9 % (37.0-47.0); HEMOGLOBIN 11.5 g/dl (12.5-16.0); MEAN CORPUSCULAR HEMOGLOBIN 30 pg (27.0-31.0)
[2017-07-30 16:03] LABS: BAND 32 % (0-10); LYMPHOCYTE 8 % (20.0-51.0); NEUTROPHILS 53 % (42.0-75.2); PLATELET ESTIMATE NORMAL (NORMAL); TOTAL CELLS COUNTED 100
[2017-08-12 14:42] VITALS: BP 122/75; PULSE 68; TEMP 98.2
[2017-08-12 14:47] LABS: ADD PATHOLOGY DIFF REVIEW NO
[2017-08-12 14:50] LABS: MEAN CELL VOLUME 94 fl (80.0-100.0); MEAN CORPUSCULAR HGB CONC 31 g/dl (33.0-37.0); MEAN PLATELET VOLUME 9.3 fl (7.4-10.4); PLATELET COUNT 311 K/mm3 (130-400); RED BLOOD COUNT 3.72 M/mm3 (4.10-5.30); WHITE BLOOD COUNT 6.9 K/mm3 (4.8-10.8)
[2017-08-12 14:52] LABS: HEMATOCRIT 34.8 % (37.0-47.0); HEMOGLOBIN 10.9 g/dl (12.5-16.0); MEAN CORPUSCULAR HEMOGLOBIN 29 pg (27.0-31.0)
[2017-08-12 15:08] LABS: ADJUSTED CALCIUM 9.2 mg/dL (8.4-10.2); ALBUMIN 4.2 gm/dL (3.5-5.0); BILIRUBIN,TOTAL 0.2 mg/dL (0.0-1.0); CALCIUM 9.4 mg/dL (8.4-10.2); CREATININE, serum 1.06 mg/dL (0.52-1.25); MAGNESIUM 1.9 mg/dL (1.6-2.3); POTASSIUM 4.9 mmol/L (3.4-5.0); TOTAL PROTEIN 7.6 gm/dL (6.4-8.2)
[2017-08-12 19:51] LABS: BAND 4 % (0-10); BASOPHIL 3 % (0-2); EOSINOPHIL 3 % (0-4); LYMPHOCYTE 12 % (20.0-51.0); NEUTROPHILS 73 % (42.0-75.2); TOTAL CELLS COUNTED 100
[2017-08-12 19:52] LABS: PLATELET ESTIMATE NORMAL (NORMAL)
[2017-08-12 19:54] LABS: ANISOCYTOSIS 1+
[2017-08-12 19:55] LABS: POIKILOCYTOSIS 1+; TEAR DROP CELLS 1+
[2017-08-20 14:04] LABS: ADD PATHOLOGY DIFF REVIEW NO
[2017-08-20 14:05] VITALS: BP 129/77; PULSE 71; TEMP 97.6
[2017-08-20 14:08] LABS: MEAN CELL VOLUME 93 fl (80.0-100.0); MEAN CORPUSCULAR HGB CONC 32 g/dl (33.0-37.0); MEAN PLATELET VOLUME 9.4 fl (7.4-10.4); PLATELET COUNT 391 K/mm3 (130-400); RED BLOOD COUNT 3.55 M/mm3 (4.10-5.30)
[2017-08-20 14:12] LABS: HEMOGLOBIN 10.6 g/dl (12.5-16.0); MEAN CORPUSCULAR HEMOGLOBIN 30 pg (27.0-31.0)
[2017-08-20 14:48] LABS: BAND 14 % (0-10); LYMPHOCYTE 30 % (20.0-51.0); NEUTROPHILS 56 % (42.0-75.2); PLATELET ESTIMATE NORMAL (NORMAL); TOTAL CELLS COUNTED 100
[~2017-08-27] VITALS: Ht 167.6 cm; Wt 65.4 kg
[~2017-08-27 14:00] MED LIST changes: +DECADRON 4MG TAB4 MG PO; +LEVAQUIN 5500 MG/TA1 PO
[2017-08-27 14:12] LABS: ADD PATHOLOGY DIFF REVIEW NO
[2017-08-27 14:16] LABS: MEAN CELL VOLUME 92 fl (80.0-100.0); MEAN CORPUSCULAR HGB CONC 33 g/dl (33.0-37.0); MEAN PLATELET VOLUME 9.1 fl (7.4-10.4); PLATELET COUNT 294 K/mm3 (130-400); RED BLOOD COUNT 3.73 M/mm3 (4.10-5.30); WHITE BLOOD COUNT 4.3 K/mm3 (4.8-10.8)
[2017-08-27 14:17] LABS: HEMATOCRIT 34.2 % (37.0-47.0); HEMOGLOBIN 11.1 g/dl (12.5-16.0); MEAN CORPUSCULAR HEMOGLOBIN 30 pg (27.0-31.0)
[2017-08-27 14:30] VITALS: BP 139/98; PULSE 64; TEMP 97.8
[2017-08-27 18:48] LABS: BAND 5 % (0-10); EOSINOPHIL 5 % (0-4); LYMPHOCYTE 22 % (20.0-51.0); NEUTROPHILS 54 % (42.0-75.2); TOTAL CELLS COUNTED 100
[2017-08-27 18:49] LABS: ANISOCYTOSIS 1+; PLATELET ESTIMATE NORMAL (NORMAL)
== END 2017-09-02 16:12 | disposition home or self-care (01) ==
LOC: EUO 14:00
PROVIDERS: Internal Medicine Medical Oncology
DX: C53.8 Malignant neoplasm of overlapping sites of cervix uteri (principal)
CPT/HCPCS: J1644